=== PATIENT | female | born 1950 | race Caucasian/White ===

== ENCOUNTER → 2023-02-25 | Outpatient (CLI) | payer MEDICARE, MEDICAID ==
--- NOTE | 2023-02-25 18:08 | Diagnostic Imaging Report ---
Indication: Lumbar radiculopathy. Time of Exam: 2:21 PM Marked left convexity lumbar scoliotic curvature is noted. There is severe multilevel degenerative disc disease with complete loss of the disc spaces at all levels as well as marginal osteophyte formation. Vertebral body heights appear to be fairly well-maintained. No acute compression fracture is identified. IMPRESSION: Severe lumbar spondylosis and scoliosis. No acute bony abnormality is detected. Dictated by: Dictated on workstation # [id number]
== END ==
LOC: ORTHO 13:31
PROVIDERS: ATTEND Orthopaedic Surgery
DX: M47.26 Other spondylosis with radiculopathy, lumbar region (principal); M41.86 Other forms of scoliosis, lumbar region
CPT/HCPCS: 72110; 99203